=== PATIENT | female | born 1965 | race African-American/Black ===

== ENCOUNTER 2017-12-15 10:04 | Inpatient (IN) | payer MEDICARE, OTHER ==
[2017-12-15 10:41] LABS: #Lymphocytes 1.7 thou/uL (1.20-3.40); #Monocytes 0.4 thou/uL (0.11-0.59); #Neutrophils 4.3 thou/uL (1.40-6.50); %Basophils 0.1 % (0.0-1.0); %Eosinophils 0.2 % (0.0-10.0); %Lymphocytes 26.7 % (21.0-51.0); %Monocytes 6.2 % (0.0-10.0); %Neutrophils 66.8 % (42.0-75.0); Hemoglobin 12.1 g/dL (12.0-16.0); Mean Corpuscular HGB CONC 32.5 g/dL (32.0-36.0); Mean Corpuscular Hemoglobin 31.9 pg (27.0-31.0); Mean Platelet Volume 8.1 fL (7.4-10.4); Platelet Count 180 thou/uL (130-400); RBC Distribution Width 14.9 % (11.5-14.5); White Blood Cell (WBC) Count 6.4 thou/uL (4.8-10.8)
--- NOTE | 2017-12-15 10:52 | RAD ---
PORTABLE CHEST ONE VIEW: Date: 12-15-17 Time: 10:46 a.m. History: Shortness of breath. FINDINGS/IMPRESSION: Comparison with exam dated 06-18-16. The heart size is mildly prominent. There is pulmonary vascular congestion with patchy consolidation in the lung garcia bilaterally. No pneumothoraces or large effusions are seen. POS: [facility]
[2017-12-15] MEDS ORDERED: Furosemide 40 MG/4 ML VIAL ONE (11:04)
[2017-12-15] MEDS ORDERED: Nitroglycerin 2% Ointment 1 INCH/1 GM Packet ONE (11:04)
[2017-12-15] MEDS ORDERED: Albuterol Sulfate 2.5 mg/0.5 ml Neb ONE (11:08)
[2017-12-15] MEDS ORDERED: Albuterol Sulfate 2.5 mg/3 ml Neb ONE (11:08)
[2017-12-15 11:14] LABS: ALT (SGPT) 12 U/L (8-55); AST (SGOT) 11 U/L (5-34); Alkaline Phosphatase 92 U/L (40-150); Anion Gap 13 mmol/L (10-20); BUN (Urea Nitrogen) 8 mg/dL (9.8-20.1); Bilirubin, Total 1.5 mg/dL (0.2-1.2); Calc. Creatinine Clearance 0 mL/min (70-130); Calcium 8.6 mg/dL (7.8-10.44); Carbon Dioxide 22 mmol/L (22-29); Chloride 110 mmol/L (98-107); Estimated GFR-MDRD 89; Globulin 2.7 g/dL (2.4-3.5); Glucose 116 mg/dL (70-105); Protein, Total 6.7 g/dL (6.0-8.3); Sodium 142 mmol/L (136-145)
[2017-12-15 11:18] LABS: CKMB 2.4 ng/mL (0-6.6); Troponin I Less than 0.010 ng/mL (< 0.028)
[2017-12-15 11:23] LABS: Potassium 2.8 mmol/L (3.5-5.1)
[2017-12-15] MEDS ORDERED: Potassium Chloride 20 MEQ TAB ONE (11:58)
[2017-12-15] MEDS ORDERED: Mag-Al 1200 mg/1200 mg/30 ML UDCUP PO PRN (13:19)
[2017-12-15] MEDS ORDERED: Guaifenesin DM 100-10/5 ML UDCUP PO PRN (13:19)
[2017-12-15] MEDS ORDERED: Acetaminophen 325 MG TAB PO PRN (13:19)
[2017-12-15] MEDS ORDERED: Calcium Carbonate 500 MG ChewTAB PO PRN (13:19)
--- NOTE | 2017-12-15 14:29 | HP ---
REASON FOR ADMISSION: Acute chronic obstructive pulmonary disease and congestive heart failure exace rbation. HISTORY OF PRESENT ILLNESS: The patient gives history of having shortness of breath which started on Tuesday. This was gradually getting worse. On Tuesday, she went to see her primary care physician, Dr. Ac Hampton. She was given a prescription for steroids, prednisone 50 mg daily to take for 5 days. She was also told to take her inhaler on a regular basis. This morning the patient woke up a round 3 in the morning and could not breathe. She called EMS and was brought here. She has a dry co ugh, but no expectoration. No complaints of fever. The patient does not recall the exact date of he r stress test, but she thinks she might have had one 3 years back in [place], [place] and was negative as far she knows. She has taken a flu shot for this year. No prior history of heart failure as such . 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 Cardiac catheterization done in shows mild coronary artery disease, LV ejection fraction was 55-60% on the angiogram, hysterec ulisses, depression. CURRENT MEDICATIONS: Norvasc 5 mg daily, prednisone 50 mg daily which she started on 12/13/2017 for a total of 5 days, Lopressor 25 mg twice daily, sertraline 50 mg daily, omeprazole 20 mg daily, albut kae inhaler q.6 hourly p.r.n., Lipitor 40 mg p.o. daily, aspirin 81 mg p.o. daily, trazodone 50 mg p .o. at bedtime, Cozaar 100 mg p.o. daily, Lasix 20 mg p.o. daily. ALLERGIES: No known drug allergies. PERSONAL HISTORY: Smokes half pack a day. Does not abuse alcohol or drugs. She has been smoking fr om the last 20 years or so. FAMILY HISTORY: Mother has had history of [place]. She in her 70s. She does not know much about he r father. REVIEW OF SYSTEMS: The following complete review of systems was negative, unless otherwise mentioned in the HPI or below: Constitutional: Weight loss or gain, ability to conduct usual activities. Skin: Rash, itching. Eyes: Double vision, pain. ENT/Mouth: Nose bleeding, neck stiffness, pain, tenderness. Cardiovascular: Palpitations, dyspnea on exertion, orthopnea. Respiratory: Shortness of breath, wheezing, cough, hemoptysis, fever or night sweats. Gastrointestinal: Poor appetite, abdominal pain, heartburn, nausea, vomiting, constipation, or diarrhea. Genitourinary: Urgency, frequency, dysuria, nocturia. Musculoskeletal: Pain, swelling. Neurologic/Psychiatric: Anxiety, depression. Allergy/Immunologic: Skin rash, bleeding tendency. PHYSICAL EXAMINATION: GENERAL: The patient is a 52-year-old female who is currently not in any acute distress. VITAL SIGNS: Blood pressure 140/84, pulse 90 per minute, respiratory rate 28 on arrival, currently a round 20, temperature 98 degrees Fahrenheit, saturating 100% on 2 liters nasal cannula. The patient was initially brought on BiPAP and was saturating 96%. NECK: Supple, no elevated JVD. HEENT: Eyes; extraocular muscles intact. Pupils reacting to light. Oral cavity mucous membranes ar e moist. No exudates or congestion. CARDIOVASCULAR: S1, S2 heard. Regular rhythm. RESPIRATORY: Air entry 1+ bilateral. Scattered rales plus in the infrascapular area. ABDOMEN: Soft, bowel sounds heard. No tenderness, rigidity or guarding. EXTREMITIES: No peripheral edema or calf tenderness. VASCULAR SYSTEM: Peripheral pulses 1+ bilateral, no ischemic ulcerations or gangrene. CENTRAL NERVOUS SYSTEM: No gross focal deficits seen. Patient is lethargic, but oriented well. PSYCHIATRIC: The patient's mood is euthymic. No hallucinations or delusions. LABORATORY AND X-RAY FINDINGS: Chest x-ray done shows pulmonary vascular congestion. Potassium 2.8, serum bicarbonate 22, BUN 8, creatinine 0.8, glucose 116, total bilirubin 1.5. Liver enzymes within normal limits. BNP is 762. First set of cardiac enzymes are negative. White count of 6, H&H 12 an d 37, platelet count 180, MCV is 98 with 68% neutrophils. EKG done shows normal sinus rhythm at 90 b eats per minute. There are signs of LVH seen on the EKG. CLINICAL IMPRESSION AND PLAN: The patient will be admitted to telemetry for acute new onset congesti ve heart failure exacerbation, likely diastolic dysfunction, acute chronic obstructive pulmonary dise ase exacerbation. The patient will be placed on Lasix 40 mg IV q.6 hourly for a total of 4 doses. T he patient has severe pulmonary vascular congestion on the x-ray and clinically. We will continue he r aspirin, Lipitor, sertraline and trazodone as before. She will be on Solu-Medrol 40 mg IV q.6h, al todd with DuoNebs and empiric Levaquin for now. We will also place her on a small dose of Coreg and l isinopril to accommodate for diuresis. Her potassium will be aggressively replaced. We will obtain an echo with 2D Doppler for LV function and cardiology consultation with Dr. Hernández who is parts control clerk fo r Cardiology. We will continue to closely monitor her on telemetry.
[2017-12-15 14:53] VITALS: BMI 25.4
[2017-12-15] MEDS ORDERED: Sodium Chloride 0.9% 10 ML ONE ×2 (17:24→17:33)
[2017-12-15] MEDS: Furosemide 40 MG/4 ML VIAL SLOW IVP SCH ×2 (17:37→22:39)
[2017-12-15] MEDS: Nicotine 14 MG PATCH TD SCH (17:38)
[2017-12-15] MEDS: Potassium Chloride 20 MEQ TAB PO SCH ×2 (17:40→22:40)
--- NOTE | 2017-12-15 18:15 | CON ---
DATE OF CONSULTATION: 12/15/2017 PRIMARY NIGHT SUPERVISOR: Dr. Flakito Kerr. REASON FOR CONSULTATION: Shortness of breath. HISTORY OF PRESENT ILLNESS: Ms. Chapman is a very pleasant 52-year-old female who co mes to the hospital for increased shortness of breath and cough. She was at home having physical the rapy. In her therapy, it was noted that she was coughing a lot more and felt a little more short of breath than normal. Physical therapist called her primary care physician who recommended she go to [facility] for evaluation. She was seen in the ER and was diagnosed with a COPD exacerbation and admitted for further care. During her evaluation, she was found to have an elevated BNP, so Cardiology is be ing consulted for further evaluation of possible heart failure. She has had a cardiac evaluation in the past in 2014. She was admitted for COPD exacerbation. She had a stress that was abnormal and ev entually taken to the catheterization lab where she was found to have mild coronary artery disease. Her LV function at that time was 50%-55%. PAST MEDICAL HISTORY: 1. Hypertension. 2. Hyperlipidemia. 3. Bronchial asthma. 4. History of cerebrovascular accident with left-sided weakness. 5. Mild coronary artery disease. PAST SURGICAL HISTORY: 1. Heart catheterization in 07/2015. 2. Hysterectomy. OUTPATIENT MEDICATIONS: Include, 1. Norvasc 5 mg a day. 2. Prednisone 50 mg a day started 2 days ago. 3. Lopressor 25 mg twice a day. 4. Sertraline 50 mg a day. 5. Omeprazole 20 mg a day. 6. Albuterol inhaler p.r.n. 7. Lipitor 40 mg at bedtime. 8. Aspirin 81 a day. 9. Trazodone 50 mg a day. 10. Cozaar 100 mg a day. 11. Lasix 20 mg daily. ALLERGIES: No known drug allergies. SOCIAL HISTORY: Smokes half pack a day. No alcohol or drugs. FAMILY HISTORY: Mother with MS in her 70s. REVIEW OF SYSTEMS: A 12-point review of systems was done and is all negative unless stated in the h istory of present illness. PHYSICAL EXAMINATION: VITAL SIGNS: Temperature 97.9, pulse 90, respiration rate 34, saturating 93% on 3 liters, blood pres sure 140/84. GENERAL: Awake, alert, oriented x3, in no distress. HEENT: Normocephalic. LUNGS: Reduced breath sounds bilaterally. CARDIOVASCULAR: S1, S2, no S3 or S4, distant heart sounds. ABDOMEN: Prominent with some distention, but nontender. EXTREMITIES: Trace edema. SKIN: Warm and dry. LABORATORY WORK: Reviewed. Normal white count, hemoglobin 12, hematocrit 37, platelet count of 180. Chemistry remarkable only for potassium of 2.8, chloride of 110, BUN of 8, creatinine was normal 0. 81, glucose of 116, total bilirubin 1.5. Troponin is normal x1. BNP was 762. Chest x-ray showed mildly prominent heart size with pulmonary vascular congestion with patchy consoli dation in bilateral lung garcia. ASSESSMENT AND PLAN: 1. Acute chronic obstructive pulmonary disease exacerbation. 2. Acute decompensated heart failure: Unclear whether this is systolic or diastolic or just related to pulmonary hypertension from her chronic obstructive pulmonary disease. PLAN: 1. Continue IV diuresis. 2. We will get an echocardiogram to assess LV function and valvular structures. She states she had an evaluation in [place] last year. She had a stress that she was told that it was normal and there were plans of doing a JOANNE at one point, he is describing they want to do procedure really go into her mouth and look at the heart from the inside and this was unable to be done at that time, unclear of the circumstances of this. 3. Further recommendations per results of echocardiogram and Dr. Kerr will follow in the morning .
[2017-12-15] MEDS: Carvedilol 3.125 MG TAB PO SCH (20:27)
[2017-12-15] MEDS: Atorvastatin Calcium 40 MG TAB PO SCH (20:27)
[2017-12-15] MEDS: Famotidine 20 MG TAB PO SCH (20:27)
[2017-12-15] MEDS: Docusate 100 MG CAP PO SCH (20:27)
[2017-12-15] MEDS: traZODone HCl 50 MG TAB PO SCH (20:27)
[2017-12-16] MEDS: Potassium Chloride 20 MEQ TAB PO SCH ×4 (00:20→18:29)
[2017-12-16] MEDS: Furosemide 40 MG/4 ML VIAL SLOW IVP SCH ×3 (00:21→14:57)
[2017-12-16 06:01] LABS: #Lymphocytes 0.7 thou/uL (1.20-3.40); #Monocytes 0.3 thou/uL (0.11-0.59); #Neutrophils 6.3 thou/uL (1.40-6.50); %Basophils 0.1 % (0.0-1.0); %Eosinophils 0.1 % (0.0-10.0); %Lymphocytes 9.4 % (21.0-51.0); %Monocytes 4.5 % (0.0-10.0); %Neutrophils 85.8 % (42.0-75.0); Hemoglobin 12.2 g/dL (12.0-16.0); Mean Corpuscular HGB CONC 32.8 g/dL (32.0-36.0); Mean Corpuscular Hemoglobin 32.1 pg (27.0-31.0); Mean Corpuscular Volume 97.8 fl (81.0-99.0); Mean Platelet Volume 8.5 fL (7.4-10.4); Platelet Count 214 thou/uL (130-400); RBC Distribution Width 15.1 % (11.5-14.5); Red Blood Cell (RBC) Count 3.78 mill/uL (4.20-5.40); White Blood Cell (WBC) Count 7.4 thou/uL (4.8-10.8)
[2017-12-16 06:11] LABS: Anion Gap 13 mmol/L (10-20); BUN (Urea Nitrogen) 13 mg/dL (9.8-20.1); Calc. Creatinine Clearance 68 mL/min (70-130); Calcium 9.5 mg/dL (7.8-10.44); Carbon Dioxide 25 mmol/L (22-29); Chloride 108 mmol/L (98-107); Estimated GFR-MDRD 72; Glucose 138 mg/dL (70-105); Potassium 4.9 mmol/L (3.5-5.1); Sodium 141 mmol/L (136-145); Uric Acid 4.6 mg/dL (2.6-6.0)
[2017-12-16] MEDS: Carvedilol 3.125 MG TAB PO SCH (09:13)
[2017-12-16] MEDS: Lisinopril 2.5 MG TAB PO SCH (09:14)
[2017-12-16] MEDS: Famotidine 20 MG TAB PO SCH ×2 (09:15→21:01)
[2017-12-16] MEDS: Enoxaparin Sodium 40 MG/0.4 ML SYRINGE SC SCH (09:17)
[2017-12-16] MEDS: Docusate 100 MG CAP PO SCH ×2 (09:17→21:02)
--- NOTE | 2017-12-16 11:56 | PQF ---
NELSON PINEDA VINAYA KUMAR MD [id number] CLINICAL DOCUMENTATION IMPROVEMENT CLARIFICATION FORM: ICD-10 Updated PLEASE DO AN ADDENDUM TO THE PROGRESS NOTE WITH ANY DOCUMENTATION UPDATES OR ADDITIONS AND CARRY THROUGH TO DC SUMMARY. THANK YOU. DATE: 12-16-17 ATTN: DR. DURÁN Please exercise your independent, professional judgment in responding to the clarification form. Clinical indicators are provided on the bottom of this form for your review Please check appropriate box(s): [x ] Acute Respiratory Failure: [x ] with Hypoxia[ ] with Hypercapnia [ ] Acute Respiratory Failure due to: (etiology) [ ] Hypoxia [ ] Other diagnosis [ ] Unable to determine In addition, please specify: Present on Admission (POA): [ x] Yes [ ] No [ ] Unable to determine For continuity of documentation, please document condition throughout progress notes and discharge summary. Thank You. CLINICAL INDICATORS - SIGNS / SYMPTOMS / LABS ER: O2 SAT 96 - 100% ON BIPAP RESP 21 - 30 PULSE 85 - 96 * WHEEZING *RESP EFFORT LABORED * RAPID * CONVERSES IN SHORT PHRASES * SIGNS OF DISTRESS * GRUNTING * NASAL FLARING *TRIPOD POSITIONING RISK FACTORS ER DX: ACUTE CHF EXAC; COPD EXAC; FAILED OP TREATMENT ER: NEW ONSET CHF EXAC; ACUTE ON CHRONIC COPD EXACERBATION TREATMENTS: MAR: DUONEB 12-15 / 12-16 LEVAQUIN IV 3-8 LASIX IV 12-15 / 12-16 SOLU-MEDROL 12-15 / 12-16 BiPAP IN ER MONITORING O2 SAT PER RT THANK YOU, ESE (This form is maintained as a part of the permanent medical record) 2014 [employer]. All Rights Reserved Ese Sanchez RN, BS [email or web address] [employer] [facility]
--- NOTE | 2017-12-16 12:29 | PDOC.PN ---
- Subjective Encounter Start Date: 12/16/17 Encounter Start Time: 10:00 Subjective: breathing better, no chest pain -: is amb in room, eating better - Objective Resuscitation Status: Resuscitation Status FULL:Full Resuscitation MAR Reviewed: Yes Vital Signs & Weight: Vital Signs (12 hours) Temp Pulse Resp BP BP Pulse Ox 12/16/17 11:05 98.2 F 82 24 H 125/75 92 L 12/16/17 11:04 87 125/75 12/16/17 09:14 87 134/69 12/16/17 08:47 87 16 100 12/16/17 08:00 98.2 F 82 24 H 134/69 97 12/16/17 05:15 94 16 145/90 H 98 Weight Weight 159 lb 12.8 oz I&O: 12/15/17 12/16/17 12/17/17 06:59 06:59 06:59 Intake Total 1106 240 Output Total 300 Balance 806 240 Result Diagrams: 12/16/17 05:06 12/16/17 05:06 Phys Exam - Physical Examination HEENT: PERRLA, moist MMs Neck: no JVD, supple Respiratory: no wheezing rhonchi+ Cardiovascular: RRR, no significant murmur Gastrointestinal: soft, non-tender, positive bowel sounds Musculoskeletal: no edema, pulses present Neurological: non-focal, moves all 4 limbs Psychiatric: A&O x 3 Dx/Plan (1) Acute diastolic (congestive) heart failure Code(s): I50.31 - ACUTE DIASTOLIC (CONGESTIVE) HEART FAILURE Status: Acute (2) COPD exacerbation Code(s): J44.1 - CHRONIC OBSTRUCTIVE PULMONARY DISEASE W (ACUTE) EXACERBATION Status: Acute (3) Dyslipidemia Code(s): E78.5 - HYPERLIPIDEMIA, UNSPECIFIED Status: Chronic (4) H/O: CVA (cerebrovascular accident) Code(s): Z86.73 - PRSNL HX OF TIA (TIA), AND CEREB INFRC W/O RESID DEFICITS Status: Chronic (5) HTN (hypertension) Code(s): I10 - ESSENTIAL (PRIMARY) HYPERTENSION Status: Chronic Qualifiers: Hypertension type: essential hypertension Qualified Code(s): I10 - Essential (primary) hypertension (6) Tobacco abuse Code(s): Z72.0 - TOBACCO USE Status: Chronic - Plan change lasix to 40mg iv q12h -: hypokalemia has resolved -: has elevated PA pressures with likely pulm htn -: CTA chest to r/o PE -: taper steroids, nebs, will f/u * . Review of Systems - Medications/Allergies Allergies/Adverse Reactions: Allergies Allergy/AdvReac Type Severity Reaction Status Date / Time No Known Allergies Allergy Verified 12/15/17 14:55 Medications: Current Medications Acetaminophen (Tylenol) 650 mg PO Q4H PRN PRN Reason: Headache/Fever or Pain Al Hydroxide/Mg Hydroxide (Maalox) 30 ml PO Q6H PRN PRN Reason: Heartburn or Indigestion Albuterol/Ipratropium (Duoneb) 3 ml NEB [id number] [facility] Last Admin: 12/16/17 08:47 Dose: 3 ml Aspirin (Aspirin Chewable) 81 mg PO DAILY [facility] Last Admin: 12/16/17 09:15 Dose: 81 mg Atorvastatin Calcium (Lipitor) 40 mg PO HS [facility] Last Admin: 12/15/17 20:27 Dose: 40 mg Calcium Carbonate (Tums) 1,000 mg PO Q4H PRN PRN Reason: Heartburn or Indigestion Diltiazem HCl (Cardizem Cd) 120 mg PO DAILY [facility] Diltiazem HCl (Cardizem Cd) 120 mg PO NOW [facility] Stop: 12/16/17 13:00 Last Admin: 12/16/17 11:04 Dose: 120 mg Docusate Sodium (Colace) 100 mg PO BID [facility] Last Admin: 12/16/17 09:17 Dose: Not Given Enoxaparin Sodium (Lovenox) 40 mg SC 0900 [facility] Last Admin: 12/16/17 09:17 Dose: 40 mg Famotidine (Pepcid) 20 mg PO BID [facility] Last Admin: 12/16/17 09:15 Dose: 20 mg Furosemide (Lasix) 40 mg SLOW IVP 0600,1400 [facility] Guaifenesin/Dextromethorphan (Robitussin Dm) 15 ml PO Q4H PRN PRN Reason: Cough Levofloxacin 750 mg/ Device 150 mls @ 100 mls/hr IVPB Q24HR [facility] Last Admin: 12/15/17 17:36 Dose: 150 mls Lisinopril (Zestril) 2.5 mg PO DAILY [facility] Last Admin: 12/16/17 09:14 Dose: 2.5 mg Methylprednisolone Sodium Succinate (Solu-Medrol) 20 mg IVP Q8HR [facility] Nicotine (Nicoderm Patch) 14 mg TD Q24HR [facility] Last Admin: 12/15/17 17:38 Dose: Not Given Potassium Chloride (K-Dur) 40 meq PO Q6HR [facility] Stop: 12/16/17 18:01 Last Admin: 12/16/17 11:04 Dose: 40 meq Sertraline HCl (Zoloft) 50 mg PO DAILY [facility] Last Admin: 12/16/17 09:16 Dose: 50 mg Sodium Chloride (Flush - Normal Saline) 10 ml IVF Q12HR [facility] Last Admin: 12/16/17 09:22 Dose: 10 ml Sodium Chloride (Flush - Normal Saline) 10 ml IVF PRN PRN PRN Reason: Saline Flush Trazodone HCl (Desyrel) 50 mg PO HS [facility] Last Admin: 12/15/17 20:27 Dose: 50 mg
[2017-12-16] MEDS: Nicotine 14 MG PATCH TD SCH (13:33)
[2017-12-16] MEDS ORDERED: Iopamidol 370 76% 100 ML VIAL ONE (13:47)
--- NOTE | 2017-12-16 15:31 | CT ---
CT ANGIO CHEST PERFORMED WITH INTRAVENOUS CONTRAST ENHANCEMENT WITH 3D RECONSTRUCTION: HISTORY: Shortness of breath. FINDINGS: The lungs show a somewhat mosaic attenuation pattern. There is hypoattenuation and ground glass opac ity. Within the areas of hypoattenuation, vessels appear somewhat smaller and within the areas of gr ound glass opacity, there did not appear to be any other secondary features that would suggest that t he underlying abnormality is related to ground glass opacity and, rather, it is felt that the areas o f hypoattenuation in this patient are the abnormal areas. Therefore, the pattern is more suggestive of airway or vascular disease rather than the myriad causes for ground glass opacity within the lung. There are small effusions. The pulmonary arteries are not dilated but are prominent. There is no CT evidence for pulmonary embolus. The thoracic aorta is normal in caliber. The visualized liver parenchyma is normal. IMPRESSION: 1. Abnormal lung mosaic type pattern, which, in this case, the underlying abnormality is felt to be the areas of hypoattenuation, suggesting an underlying airway or vascular disease. In this patient, with borderline pulmonary arteries, the underlying etiology may be pulmonary artery hypertension. Th ere are small effusions present. 2. No CT evidence for pulmonary embolus. POS: [facility]
[2017-12-16] MEDS: traZODone HCl 50 MG TAB PO SCH (21:01)
[2017-12-16] MEDS: Atorvastatin Calcium 40 MG TAB PO SCH (21:01)
[2017-12-17] MEDS: Furosemide 40 MG/4 ML VIAL SLOW IVP SCH (05:46)
[2017-12-17] MEDS ORDERED: predniSONE 20 MG TAB PO SCH (08:00)
[2017-12-17 08:31] LABS: Anion Gap 15 mmol/L (10-20); BUN (Urea Nitrogen) 18 mg/dL (9.8-20.1); Calc. Creatinine Clearance 62 mL/min (70-130); Calcium 10.1 mg/dL (7.8-10.44); Carbon Dioxide 22 mmol/L (22-29); Chloride 103 mmol/L (98-107); Estimated GFR-MDRD 60; Glucose 166 mg/dL (70-105); Potassium 4.4 mmol/L (3.5-5.1); Sodium 136 mmol/L (136-145)
[2017-12-17 08:50] LABS: #Monocytes 0.4 thou/uL (0.11-0.59); #Neutrophils 8.2 thou/uL (1.40-6.50); %Basophils 0.2 % (0.0-1.0); %Eosinophils 0.1 % (0.0-10.0); %Lymphocytes 10.3 % (21.0-51.0); %Neutrophils 85.5 % (42.0-75.0); Hemoglobin 13.3 g/dL (12.0-16.0); MDiff Complete? YES; Mean Corpuscular HGB CONC 30.7 g/dL (32.0-36.0); Mean Corpuscular Hemoglobin 30.9 pg (27.0-31.0); Mean Platelet Volume 8.3 fL (7.4-10.4); PLT Morphology Comment Appears Adequate; Platelet Count 260 thou/uL (130-400); Polychromasia MODERATE = 3-4 cells (100X) (0-2/hpf); RBC Distribution Width 15.2 % (11.5-14.5); White Blood Cell (WBC) Count 9.6 thou/uL (4.8-10.8)
[2017-12-17] MEDS ORDERED: Furosemide 40 MG TAB PO SCH (09:00)
[2017-12-17] MEDS: Lisinopril 2.5 MG TAB PO SCH (09:09)
[2017-12-17] MEDS: Docusate 100 MG CAP PO SCH (09:10)
[2017-12-17] MEDS: Enoxaparin Sodium 40 MG/0.4 ML SYRINGE SC SCH (09:10)
[2017-12-17] MEDS: Famotidine 20 MG TAB PO SCH (09:10)
[2017-12-17 11:43] VITALS: BP 122/75; TEMP 98.1
--- NOTE | 2017-12-17 11:46 | PDOC.PN ---
- Subjective Encounter Start Date: 12/17/17 Encounter Start Time: 09:15 Subjective: feels better, wants to go home -: daughter at bedside is insisting her mom go home now - Objective Resuscitation Status: Resuscitation Status FULL:Full Resuscitation MAR Reviewed: Yes Vital Signs & Weight: Vital Signs (12 hours) Temp Pulse Resp BP BP Pulse Ox 12/17/17 11:42 98.1 F 98 16 122/75 98 12/17/17 09:11 82 12/17/17 09:09 82 119/70 12/17/17 07:30 98.2 F 82 16 119/70 97 12/17/17 07:01 100 12/17/17 07:00 71 16 100 12/17/17 05:40 100 12/17/17 04:00 97.4 F L 80 18 124/65 100 12/17/17 01:58 100 Weight Weight 154 lb 3.2 oz I&O: 12/16/17 12/17/17 12/18/17 06:59 06:59 07:59 Intake Total 1106 1470 Output Total 300 250 Balance 806 1220 Result Diagrams: 12/17/17 07:57 12/17/17 07:57 Additional Labs: Accuchecks 12/17/17 05:42 POC Glucose 142 H Phys Exam - Physical Examination HEENT: PERRLA, moist MMs Neck: no JVD, supple Respiratory: no wheezing, no rales Cardiovascular: RRR, no significant murmur Gastrointestinal: soft, non-tender, positive bowel sounds Musculoskeletal: no edema, pulses present Neurological: non-focal, moves all 4 limbs Psychiatric: A&O x 3 Dx/Plan (1) Acute diastolic (congestive) heart failure Code(s): I50.31 - ACUTE DIASTOLIC (CONGESTIVE) HEART FAILURE Status: Acute (2) COPD exacerbation Code(s): J44.1 - CHRONIC OBSTRUCTIVE PULMONARY DISEASE W (ACUTE) EXACERBATION Status: Acute (3) Dyslipidemia Code(s): E78.5 - HYPERLIPIDEMIA, UNSPECIFIED Status: Chronic (4) H/O: CVA (cerebrovascular accident) Code(s): Z86.73 - PRSNL HX OF TIA (TIA), AND CEREB INFRC W/O RESID DEFICITS Status: Chronic (5) HTN (hypertension) Code(s): I10 - ESSENTIAL (PRIMARY) HYPERTENSION Status: Chronic Qualifiers: Hypertension type: essential hypertension Qualified Code(s): I10 - Essential (primary) hypertension (6) Tobacco abuse Code(s): Z72.0 - TOBACCO USE Status: Chronic - Plan Pt and daughter insist they want to go home come what may now -: they will call and schedule f/u with her pulmologist in 2 weeks -: may dc home -: pt and daughter are aware of CT findings and echo results which I have expl -: -ained in detail and the need for pulm consult, family wants it outpt * .
--- NOTE | 2017-12-18 00:01 | DIS ---
DATE OF ADMISSION: 12/15/2017 DATE OF DISCHARGE: 12/17/2017 DISCHARGE DISPOSITION: To home. PRIMARY DISCHARGE DIAGNOSES: Congestive heart failure exacerbation with diastolic dysfunction, chronic obstructive pulmonary disease exacerbation, hypertension, tobacco abuse, dyslipidemia. PROCEDURES DONE DURING HOSPITALIZATION: The patient has had echo with 2D Doppler done, which showed ejection fraction of 55% to 60%. There is mild concentric LVH. There was diastolic dysfunction, severe mitral regurgitation, right ventricular systolic pressures of 71 mmHg consistent with pulmonary hypertension. CT angio chest done showed no evidence of PE, had abnormal lung mosaic type pattern suggesting possible underlying airway or vascular disease. Blood cultures x2 no growth. H&H 13 and 43, platelet count 260. Discharge BUN and creatinine are 18 and 1.1. BNP was 762 on the day of admission. One set of cardiac enzymes were negative. INPATIENT CONSULTS: Dr. Hernández for Cardiology. BRIEF COURSE DURING HOSPITALIZATION: The patient initially got admitted with complaints of shortness of breath. She had gone to see her primary care physician on the Tuesday prior to arrival here and was given a prescription for steroids and inhalers. The patient was not getting better and had come to the emergency room. She was essentially admitted for new onset congestive heart failure exacerbation with diastolic dysfunction and COPD exacerbation. She has ongoing smoking history as well. Her echo with 2D Doppler revealed diastolic dysfunction with severe mitral regurgitation and pulmonary hypertension. A CT angio chest was done, which showed no evidence of PE, but there was abnormal mosaic type pattern seen suggestive of pulmonary hypertension. The patient this morning did not want to have a pulmonary consultation here as she sees her director trial at [facility], and wanted to have a outpatient followup with him in the next 2 weeks. She and her daughter are adamant about getting discharged this morning. She was gently diuresed during her stay and has done well. She is ambulating and eating well prior to discharge. Please see a face- to-face documentation for the day of discharge on [facility]. [facility]
--- NOTE | 2017-12-24 14:23 | EKG ---
Test Reason : Blood Pressure : / mmHG Vent. Rate : 090 BPM Atrial Rate : 090 BPM P-R Int : 154 ms QRS Dur : 092 ms QT Int : 394 ms P-R-T Axes : 042 076 057 degrees QTc Int : 481 ms Normal sinus rhythm Biatrial enlargement Left ventricular hypertrophy ST abnormality, possible digitalis effect Prolonged QT Abnormal ECG Confirmed by AIDEE Leigh, SOFYA ([id number]), subeditor LORENA HANSON ([id number]) on 12/24/2017 2:21:48 PM Referred By: Confirmed By:SOFYA HOSKINS M.D.
== END 2017-12-17 11:47 | disposition home or self-care (01) | DRG 291 ==
LOC: ERS 10:04 → 2NO 12:44
PROVIDERS: ADMIT Internal Medicine; ATTEND Internal Medicine
PROC: 5A09357 Assistance with Respiratory Ventilation, Less than 24 Consecutive Hours, Continuous Positive Airway Pressure (ICD-10-PCS; principal; 2017-12-15)
DX: I11.0 Hypertensive heart disease with heart failure (principal); J96.01 Acute respiratory failure with hypoxia; J44.1 Chronic obstructive pulmonary disease with (acute) exacerbation; I69.354 Hemiplegia and hemiparesis following cerebral infarction affecting left non-dominant side; I50.33 Acute on chronic diastolic (congestive) heart failure; I27.20 Pulmonary hypertension, unspecified; E78.5 Hyperlipidemia, unspecified; F32.9 Major depressive disorder, single episode, unspecified; F17.210 Nicotine dependence, cigarettes, uncomplicated; I34.0 Nonrheumatic mitral (valve) insufficiency; I25.10 Atherosclerotic heart disease of native coronary artery without angina pectoris; E87.6 Hypokalemia
CPT/HCPCS: 36415; 36416; 71045; 71275; 80048; 80053; 82553; 83880; 84484; 84550; 85025; 87040; 93005; 93306; 93798; 94640; 94644; 94660; 94760; 96374; A4216; J1650; J1940; J1956; J2920; J7506; J7611; J7620

== ENCOUNTER 2022-09-16 13:16 | Inpatient (IN) | payer OTHER ==
[2022-09-16 14:04] LABS: #Monocytes 0.5 thou/uL (0.11-0.59); #Neutrophils 2.4 thou/uL (1.40-6.50); %Basophils 0.4 % (0.0-1.0); %Eosinophils 0.7 % (0.0-10.0); %Lymphocytes 41.3 % (21.0-51.0); %Monocytes 9.2 % (0.0-10.0); %Neutrophils 48.4 % (42.0-75.0); Mean Corpuscular HGB CONC 34.7 g/dL (32.0-36.0); Mean Corpuscular Hemoglobin 35.3 pg (27.0-31.0); Mean Platelet Volume 9.1 fL (7.4-10.4); Platelet Count 177 10x3/uL (130-400); RBC Distribution Width 11.9 % (11.5-14.5); Red Blood Cell (RBC) Count 4.27 mill/uL (4.20-5.40); White Blood Cell (WBC) Count 4.9 10x3/uL (4.8-10.8)
[2022-09-16 14:25] LABS: ALT (SGPT) 38 U/L (8-55); AST (SGOT) 23 U/L (5-34); Albumin 4.5 g/dL (3.5-5.0); Alkaline Phosphatase 87 U/L (40-110); Anion Gap 11 mmol/L (10-20); BUN (Urea Nitrogen) 12 mg/dL (9.8-20.1); Bilirubin, Total 0.6 mg/dL (0.2-1.2); Calc. Creatinine Clearance 0 mL/min (70-130); Calcium 9.4 mg/dL (7.8-10.44); Carbon Dioxide 26 mmol/L (22-29); Chloride 108 mmol/L (98-107); Estimated GFR 62; Globulin 2.9 g/dL (2.4-3.5); Glucose 112 mg/dL (70-105); Potassium 3.7 mmol/L (3.5-5.1); Protein, Total 7.4 g/dL (6.0-8.3); Sodium 141 mmol/L (136-145)
[2022-09-16] MEDS ORDERED: Aspirin 325 MG TAB ONE (15:02)
[2022-09-16] MEDS ORDERED: Iopamidol-370 76% 500 ML 1 ML ONE (15:57)
[2022-09-16] MEDS ORDERED: Ondansetron ODT 4 MG TAB PO PRN (18:02)
[2022-09-16] MEDS ORDERED: Acetaminophen 325 MG TAB PO PRN (18:02)
[2022-09-16] MEDS ORDERED: Senokot S 8.6-50 MG TAB PO PRN (18:02)
[2022-09-16 18:13] LABS: INR-International Normal Ratio 1.5; Prothrombin Time 18.8 sec (12.0-14.7)
[2022-09-16] MEDS: Atorvastatin Calcium 40 MG TAB PO SCH (19:39)
[2022-09-16] MEDS: Famotidine 20 MG TAB PO SCH (19:39)
[2022-09-16] MEDS: Amlodipine 10 MG TAB PO SCH (19:40)
[2022-09-16 20:00] VITALS: BMI 25.0
[2022-09-17 06:24] LABS: ALT (SGPT) 36 U/L (8-55); AST (SGOT) 24 U/L (5-34); Alkaline Phosphatase 82 U/L (40-110); Anion Gap 11 mmol/L (10-20); BUN (Urea Nitrogen) 12 mg/dL (9.8-20.1); Bilirubin, Total 0.4 mg/dL (0.2-1.2); Calc. Creatinine Clearance 61 mL/min (70-130); Calcium 9.3 mg/dL (7.8-10.44); Carbon Dioxide 23 mmol/L (22-29); Cardiac Risk 3.1 (Less than 4.5); Chloride 108 mmol/L (98-107); Cholesterol 116 mg/dl (< 200 Desired); Estimated GFR 62; Globulin 2.9 g/dL (2.4-3.5); Glucose 89 mg/dL (70-105); HDL Cholesterol 37 mg/dL (>60 Neg Risk); LDL Cholesterol, Calculated 67 mg/dL; Potassium 4.3 mmol/L (3.5-5.1); Protein, Total 6.9 g/dL (6.0-8.3); Sodium 138 mmol/L (136-145); Triglycerides 61 mg/dL (Less than 150)
[2022-09-17 06:34] LABS: Hemoglobin 14.4 g/dL (12.0-16.0); Mean Corpuscular Hemoglobin 32.7 pg (27.0-31.0); Mean Platelet Volume 9.3 fL (7.4-10.4); Platelet Count 167 10x3/uL (130-400); RBC Distribution Width 11.9 % (11.5-14.5); Red Blood Cell (RBC) Count 4.41 mill/uL (4.20-5.40); White Blood Cell (WBC) Count 4.9 10x3/uL (4.8-10.8)
[2022-09-17 06:55] LABS: Eosinophils 1 % (0-10); Lymphocytes 59 % (21-51); MDiff Complete? YES; Monocytes 12 % (0-10); Neutrophil 28 % (42-75); Platelet Morphology Comment Appears Adequate; RBC Morphology Normal
[2022-09-17] MEDS: Clopidogrel Bisulfate 75 MG TAB PO SCH (08:23)
[2022-09-17] MEDS: Aspirin 81 mg Enteric Coated Tablet PO SCH (08:23)
[2022-09-17] MEDS: Carvedilol 25 MG TAB PO SCH (08:23)
[2022-09-17] MEDS: Famotidine 20 MG TAB PO SCH ×2 (08:23→20:13)
[2022-09-17] MEDS: Losartan 25 MG TAB PO SCH (08:23)
[2022-09-17] MEDS ORDERED: Atorvastatin Calcium 40 MG TAB PO SCH (09:00)
[2022-09-17] MEDS ORDERED: Heparin 10,000 UNITS/ 10 ML VIAL SLOW IVP SCH ×2 (13:00→17:30)
[2022-09-17] MEDS ORDERED: Heparin 25,000 units/D5W 500 ML IVPB SCH ×2 (13:00→17:30)
[2022-09-17 13:40] LABS: Hemoglobin 14.9 g/dL (12.0-16.0); Platelet Count 166 10x3/uL (130-400)
[2022-09-17] MEDS ORDERED: Warfarin Sodium 7.5 MG TAB PO SCH (17:00)
[2022-09-17] MEDS ORDERED: hydrALAZINE 20 MG/ML VIAL SLOW IVP PRN (17:36)
[2022-09-17 18:45] LABS: PTT Greater than 250.0 sec (22.9-36.1)
[2022-09-17] MEDS: Atorvastatin Calcium 40 MG TAB PO SCH (20:13)
[2022-09-18 03:59] LABS: Hemoglobin A1c 6.1 % (4.0-6.0)
[2022-09-18 04:01] LABS: INR-International Normal Ratio 1.3; Prothrombin Time 16.4 sec (12.0-14.7)
[2022-09-18] MEDS: Famotidine 20 MG TAB PO SCH ×2 (07:52→19:17)
[2022-09-18] MEDS: Clopidogrel Bisulfate 75 MG TAB PO SCH (07:52)
[2022-09-18] MEDS: Aspirin 81 mg Enteric Coated Tablet PO SCH (07:52)
[2022-09-18] MEDS: Carvedilol 25 MG TAB PO SCH (18:37)
[2022-09-18] MEDS: Atorvastatin Calcium 40 MG TAB PO SCH (19:17)
[2022-09-19 04:19] LABS: INR-International Normal Ratio 1.1; Prothrombin Time 14.6 sec (12.0-14.7)
[2022-09-19 04:20] LABS: PTT 69.7 sec (22.9-36.1)
[2022-09-19] MEDS: Aspirin 81 mg Enteric Coated Tablet PO SCH (10:11)
[2022-09-19] MEDS: Losartan 25 MG TAB PO SCH (10:12)
[2022-09-19] MEDS: Carvedilol 25 MG TAB PO SCH ×2 (10:12→18:55)
[2022-09-19] MEDS: Clopidogrel Bisulfate 75 MG TAB PO SCH (10:12)
[2022-09-19] MEDS: Famotidine 20 MG TAB PO SCH ×2 (10:12→20:17)
[2022-09-19 14:06] LABS: Hemoglobin 14.5 g/dL (12.0-16.0); Platelet Count 159 10x3/uL (130-400)
[2022-09-19 17:47] LABS: Hemoglobin 14.7 g/dL (12.0-16.0); Platelet Count 168 10x3/uL (130-400)
[2022-09-19] MEDS: Amlodipine 10 MG TAB PO SCH (20:17)
[2022-09-19] MEDS: Atorvastatin Calcium 40 MG TAB PO SCH (20:17)
[2022-09-20 03:55] LABS: Prothrombin Time 13.5 sec (12.0-14.7)
[2022-09-20 03:56] LABS: PTT 69.3 sec (22.9-36.1)
[2022-09-20] MEDS: Aspirin 81 mg Enteric Coated Tablet PO SCH (07:40)
[2022-09-20] MEDS: Carvedilol 25 MG TAB PO SCH ×2 (07:40→17:59)
[2022-09-20] MEDS: Clopidogrel Bisulfate 75 MG TAB PO SCH (07:40)
[2022-09-20] MEDS: Famotidine 20 MG TAB PO SCH ×2 (07:40→20:36)
[2022-09-20] MEDS: Losartan 25 MG TAB PO SCH (07:40)
[2022-09-20 08:23] LABS: Hemoglobin 14.3 g/dL (12.0-16.0); Mean Corpuscular HGB CONC 33.2 g/dL (32.0-36.0); Mean Corpuscular Hemoglobin 34.3 pg (27.0-31.0); Mean Platelet Volume 9.2 fL (7.4-10.4); Platelet Count 169 10x3/uL (130-400); RBC Distribution Width 11.9 % (11.5-14.5); Red Blood Cell (RBC) Count 4.17 mill/uL (4.20-5.40); White Blood Cell (WBC) Count 4.9 10x3/uL (4.8-10.8)
[2022-09-20 08:41] LABS: Anion Gap 12 mmol/L (10-20); BUN (Urea Nitrogen) 9 mg/dL (9.8-20.1); Calc. Creatinine Clearance 74 mL/min (70-130); Calcium 9.4 mg/dL (7.8-10.44); Carbon Dioxide 23 mmol/L (22-29); Chloride 109 mmol/L (98-107); Estimated GFR 74; Glucose 94 mg/dL (70-105); Potassium 4.2 mmol/L (3.5-5.1); Sodium 140 mmol/L (136-145)
[2022-09-20 10:58] LABS: Band 1 % (5-11); Eosinophils 2 % (0-10); Lymphocytes 47 % (21-51); MDiff Complete? YES; Monocytes 10 % (0-10); Neutrophil 40 % (42-75); Platelet Morphology Comment Appears Adequate; RBC Morphology Normal
[2022-09-20] MEDS ORDERED: Lidocaine 1% MPF 2 ML VIAL ONE (11:57)
[2022-09-20] MEDS ORDERED: Heparin 5,000 UNITS/ML VIAL ONE (11:59)
[2022-09-20] MEDS ORDERED: Bupivacaine HCl 0.5%/Epinephrine 1:200,000/PF 30 ml Vial ONE (11:59)
[2022-09-20] MEDS ORDERED: Protamine Sulfate 50 MG/5 ML VIAL ONE (11:59)
[2022-09-20] MEDS ORDERED: Dexamethasone 4 mg/ml Vial ONE (12:08)
[2022-09-20] MEDS ORDERED: CEFAZOLIN 2 GM VIAL ONE (12:17)
[2022-09-20] MEDS ORDERED: Midazolam HCl 2 mg/2 ml Vial ONE (12:17)
[2022-09-20] MEDS ORDERED: Sodium Chloride 0.9% 100 ML ONE (12:17)
[2022-09-20] MEDS ORDERED: niCARdipine 25 MG/10 ML VIAL ONE (12:17)
[2022-09-20] MEDS ORDERED: fentaNYL PF 100 MCG/2 ML SYRINGE ONE (12:17)
[2022-09-20] MEDS ORDERED: Dexamethasone 20 MG/5 ML VIAL ONE (12:28)
[2022-09-20] MEDS ORDERED: Rocuronium Bromide 10 MG/ML (10ML VIAL) ONE (12:28)
[2022-09-20] MEDS ORDERED: PROPOFOL 200 MG/20 ML VIAL ONE (12:28)
[2022-09-20] MEDS ORDERED: Ondansetron PF 4 MG/2 ML Vial ONE (12:28)
[2022-09-20] MEDS ORDERED: SUGAMMADEX SODIUM 200 MG/2 ML VIAL ONE (13:55)
[2022-09-20] MEDS: Sodium Chloride 0.9% 1,000 ML IV SCH (17:45)
[2022-09-20] MEDS ORDERED: Nitroglycerin 50 MG/250 ML BOT 250 ML IVPB PRN (17:58)
[2022-09-20] MEDS ORDERED: traMADol HCl 50 MG TAB PO PRN (17:58)
[2022-09-20] MEDS ORDERED: Acetaminophen 325 MG TAB PO PRN (17:58)
[2022-09-20] MEDS ORDERED: Ondansetron PF 4 MG/2 ML Vial IVP PRN (17:58)
[2022-09-20] MEDS ORDERED: Phenylephrine 40 MG in Sodium Chloride 0.9% 250 ML 250 ML IVPB PRN (17:58)
[2022-09-20] MEDS ORDERED: FENTANYL 50 MCG/ML 1 ML VIAL SLOW IVP PRN (18:21)
[2022-09-20] MEDS: CEFAZOLIN 2 GM in Sodium Chloride 0.9% 100 ML IVPB SCH (20:34)
[2022-09-20] MEDS: Atorvastatin Calcium 40 MG TAB PO SCH (20:35)
[2022-09-20] MEDS: Amlodipine 10 MG TAB PO SCH (20:35)
[2022-09-20] MEDS ORDERED: Electrolyte Replacement Protocol 1 EACH FS SCH (21:30)
[2022-09-21] MEDS: Sodium Chloride 0.9% 1,000 ML IV SCH (03:41)
[2022-09-21] MEDS: CEFAZOLIN 2 GM in Sodium Chloride 0.9% 100 ML IVPB SCH ×2 (03:44→12:39)
[2022-09-21 07:48] LABS: #Basophils 0.1 thou/uL (0.0-0.2); #Monocytes 0.8 thou/uL (0.11-0.59); #Neutrophils 13.4 thou/uL (1.40-6.50); %Basophils 0.8 % (0.0-1.0); %Lymphocytes 6.5 % (21.0-51.0); %Monocytes 5.1 % (0.0-10.0); %Neutrophils 87.6 % (42.0-75.0); Hemoglobin 13.9 g/dL (12.0-16.0); Mean Corpuscular HGB CONC 32.6 g/dL (32.0-36.0); Mean Corpuscular Hemoglobin 33.4 pg (27.0-31.0); Mean Platelet Volume 9.2 fL (7.4-10.4); Platelet Count 180 10x3/uL (130-400); RBC Distribution Width 11.9 % (11.5-14.5); Red Blood Cell (RBC) Count 4.15 mill/uL (4.20-5.40); White Blood Cell (WBC) Count 15.3 10x3/uL (4.8-10.8)
[2022-09-21 08:02] LABS: Anion Gap 14 mmol/L (10-20); BUN (Urea Nitrogen) 14 mg/dL (9.8-20.1); Calc. Creatinine Clearance 70 mL/min (70-130); Calcium 9.4 mg/dL (7.8-10.44); Carbon Dioxide 21 mmol/L (22-29); Chloride 108 mmol/L (98-107); Estimated GFR 69; Glucose 117 mg/dL (70-105); Magnesium 1.9 mg/dL (1.6-2.6); Potassium 4.6 mmol/L (3.5-5.1); Sodium 138 mmol/L (136-145)
[2022-09-21] MEDS: Famotidine 20 MG TAB PO SCH ×2 (08:59→20:05)
[2022-09-21] MEDS: Carvedilol 25 MG TAB PO SCH ×2 (08:59→16:52)
[2022-09-21] MEDS: Aspirin 81 mg Enteric Coated Tablet PO SCH (08:59)
[2022-09-21] MEDS: Losartan 25 MG TAB PO SCH (08:59)
[2022-09-21] MEDS: Clopidogrel Bisulfate 75 MG TAB PO SCH (09:00)
[2022-09-21] MEDS: Enoxaparin Sodium 40 MG/0.4 ML SYRINGE SC SCH (09:00)
[2022-09-21] MEDS ORDERED: Magnesium 2 GM/50 ML(in water) 2 GM in Premix Bag 1 BAG IVPB SCH (13:45)
[2022-09-21] MEDS: Warfarin Sodium 5 MG TAB PO SCH (16:53)
[2022-09-21] MEDS: Atorvastatin Calcium 40 MG TAB PO SCH (20:05)
[2022-09-21] MEDS: Amlodipine 10 MG TAB PO SCH (20:06)
[2022-09-22] MEDS ORDERED: hydrOXYzine 10 MG TAB PO SCH (02:30)
[2022-09-22 03:49] LABS: #Lymphocytes 1.8 thou/uL (1.20-3.40); #Monocytes 1.2 thou/uL (0.11-0.59); #Neutrophils 8.8 thou/uL (1.40-6.50); %Basophils 0.2 % (0.0-1.0); %Eosinophils 0.2 % (0.0-10.0); %Neutrophils 74.7 % (42.0-75.0); Hemoglobin 12.1 g/dL (12.0-16.0); Mean Corpuscular HGB CONC 35.5 g/dL (32.0-36.0); Mean Corpuscular Hemoglobin 36.3 pg (27.0-31.0); Mean Platelet Volume 9.1 fL (7.4-10.4); Platelet Count 143 10x3/uL (130-400); RBC Distribution Width 11.9 % (11.5-14.5); Red Blood Cell (RBC) Count 3.34 mill/uL (4.20-5.40); White Blood Cell (WBC) Count 11.8 10x3/uL (4.8-10.8)
[2022-09-22 03:58] LABS: INR-International Normal Ratio 0.9
[2022-09-22 04:09] LABS: Anion Gap 9 mmol/L (10-20); BUN (Urea Nitrogen) 13 mg/dL (9.8-20.1); Calc. Creatinine Clearance 69 mL/min (70-130); Calcium 8.9 mg/dL (7.8-10.44); Carbon Dioxide 25 mmol/L (22-29); Chloride 111 mmol/L (98-107); Estimated GFR 68; Glucose 110 mg/dL (70-105); Magnesium 2.2 mg/dL (1.6-2.6); Phosphorus 2.7 mg/dL (2.3-4.7); Potassium 4.3 mmol/L (3.5-5.1); Sodium 141 mmol/L (136-145)
[2022-09-22] MEDS: Carvedilol 25 MG TAB PO SCH ×2 (08:04→18:41)
[2022-09-22] MEDS: Aspirin 81 mg Enteric Coated Tablet PO SCH (08:04)
[2022-09-22] MEDS: Clopidogrel Bisulfate 75 MG TAB PO SCH (08:04)
[2022-09-22] MEDS: Losartan 25 MG TAB PO SCH (08:04)
[2022-09-22] MEDS: Famotidine 20 MG TAB PO SCH ×2 (08:05→20:15)
[2022-09-22] MEDS: Enoxaparin Sodium 40 MG/0.4 ML SYRINGE SC SCH (08:08)
[2022-09-22] MEDS: Warfarin Sodium 5 MG TAB PO SCH (18:43)
[2022-09-22] MEDS: Amlodipine 10 MG TAB PO SCH (20:15)
[2022-09-22] MEDS: Atorvastatin Calcium 40 MG TAB PO SCH (20:15)
[2022-09-23 04:01] LABS: Anion Gap 12 mmol/L (10-20); BUN (Urea Nitrogen) 15 mg/dL (9.8-20.1); Calc. Creatinine Clearance 73 mL/min (70-130); Calcium 8.9 mg/dL (7.8-10.44); Carbon Dioxide 18 mmol/L (22-29); Chloride 112 mmol/L (98-107); Estimated GFR 71; Glucose 130 mg/dL (70-105); Prothrombin Time 13.5 sec (12.0-14.7); Sodium 138 mmol/L (136-145)
[2022-09-23 04:30] LABS: Hemoglobin 12.2 g/dL (12.0-16.0); Lymphocytes 44 % (21-51); MDiff Complete? YES; Macrocytosis MODERATE=16-30 cells (100X) (0-5/hpf); Mean Corpuscular HGB CONC 35.3 g/dL (32.0-36.0); Mean Corpuscular Hemoglobin 36.2 pg (27.0-31.0); Mean Platelet Volume 9.4 fL (7.4-10.4); Monocytes 6 % (0-10); Neutrophil 49 % (42-75); Ovalocytes SLIGHT = 2-5 cells (100X) (0-1/hpf); Platelet Count 155 10x3/uL (130-400); Platelet Morphology Comment Appears Adequate; Reactive Lymphocytes 1 % (0-10); Red Blood Cell (RBC) Count 3.38 mill/uL (4.20-5.40); White Blood Cell (WBC) Count 9.3 10x3/uL (4.8-10.8)
[2022-09-23] MEDS: Clopidogrel Bisulfate 75 MG TAB PO SCH (08:59)
[2022-09-23] MEDS: Carvedilol 25 MG TAB PO SCH ×2 (08:59→16:14)
[2022-09-23] MEDS: Enoxaparin Sodium 40 MG/0.4 ML SYRINGE SC SCH (08:59)
[2022-09-23] MEDS: Famotidine 20 MG TAB PO SCH (08:59)
[2022-09-23] MEDS: Losartan 25 MG TAB PO SCH (08:59)
[2022-09-23] MEDS: Aspirin 81 mg Enteric Coated Tablet PO SCH (08:59)
[2022-09-23 14:33] VITALS: BP 118/69
[2022-09-23 15:46] VITALS: TEMP 98.4
[2022-09-23] MEDS ORDERED: Warfarin Sodium 7.5 MG TAB PO SCH ×2 (16:15→17:00)
[2022-09-24] MEDS ORDERED: Warfarin Sodium 7.5 MG TAB PO SCH (17:00)
== END 2022-09-23 17:00 | disposition left against medical advice (07) | DRG 34 ==
LOC: ERS 13:16 → NEURO 17:37 → IMCU/EMU 09-17 21:28 → CCU 09-20 14:14
PROVIDERS: ADMIT Student in an Organized Health Care Education/Training Program; ATTEND Hospitalist
PROC: 037H3DZ Dilation of Right Common Carotid Artery with Intraluminal Device, Percutaneous Approach (ICD-10-PCS; principal; 2022-09-20)
DX: I65.23 Occlusion and stenosis of bilateral carotid arteries (principal); I63.511 Cerebral infarction due to unspecified occlusion or stenosis of right middle cerebral artery; I50.32 Chronic diastolic (congestive) heart failure; Z20.822 Contact with and (suspected) exposure to COVID-19; I11.0 Hypertensive heart disease with heart failure; E78.5 Hyperlipidemia, unspecified; I25.10 Atherosclerotic heart disease of native coronary artery without angina pectoris; F17.210 Nicotine dependence, cigarettes, uncomplicated; R29.701 NIHSS score 1; G93.89 Other specified disorders of brain; E66.9 Obesity, unspecified; J45.909 Unspecified asthma, uncomplicated; E83.42 Hypomagnesemia; Z53.29 Procedure and treatment not carried out because of patient's decision for other reasons; Z68.23 Body mass index [BMI] 23.0-23.9, adult; Z79.52 Long term (current) use of systemic steroids; Z79.899 Other long term (current) drug therapy; Z79.82 Long term (current) use of aspirin; Z95.2 Presence of prosthetic heart valve; Z90.710 Acquired absence of both cervix and uterus; Z79.51 Long term (current) use of inhaled steroids
CPT/HCPCS: 36415; 70450; 70496; 70498; 70551; 80048; 80053; 80061; 83036; 83735; 84100; 84443; 85014; 85018; 85025; 85049; 85610; 85730; 93005; 93306; 94640; 94760; 95712; 95819; 95957; C1725; C1769; C1876; C1884; J1100; J1642; J1644; J1650; J2250; J2405; J2704; J2720; J3475; J3490; J7050; J7620; Q9967; U0003; U0005

== ENCOUNTER 2022-12-09 13:08 | Emergency (ER) | payer OTHER ==
[~2022-12-09 13:08] MED LIST: Iopamidol-370 76% 500 ML 1 ML ONE
[2022-12-09 14:02] LABS: #Lymphocytes 1.9 thou/uL (1.20-3.40); #Monocytes 0.8 thou/uL (0.11-0.59); #Neutrophils 5.6 thou/uL (1.40-6.50); %Basophils 0.6 % (0.0-1.0); %Eosinophils 0.2 % (0.0-10.0); %Lymphocytes 22.6 % (21.0-51.0); %Monocytes 9.7 % (0.0-10.0); Hemoglobin 14.9 g/dL (12.0-16.0); Mean Corpuscular HGB CONC 34.4 g/dL (32.0-36.0); Mean Platelet Volume 9.1 fL (7.4-10.4); Platelet Count 188 10x3/uL (130-400); RBC Distribution Width 11.7 % (11.5-14.5); Red Blood Cell (RBC) Count 4.26 mill/uL (4.20-5.40); White Blood Cell (WBC) Count 8.4 10x3/uL (4.8-10.8)
[2022-12-09 14:21] LABS: ALT (SGPT) 46 U/L (8-55); AST (SGOT) 18 U/L (5-34); Albumin 4.6 g/dL (3.5-5.0); Alkaline Phosphatase 103 U/L (40-110); Anion Gap 15 mmol/L (10-20); BUN (Urea Nitrogen) 9 mg/dL (9.8-20.1); Calc. Creatinine Clearance 0 mL/min (70-130); Carbon Dioxide 24 mmol/L (22-29); Chloride 105 mmol/L (98-107); Estimated GFR 56; Globulin 3.5 g/dL (2.4-3.5); Glucose 114 mg/dL (70-105); Lipase 6 U/L (8-78); Potassium 3.7 mmol/L (3.5-5.1); Protein, Total 8.1 g/dL (6.0-8.3); Sodium 140 mmol/L (136-145)
[2022-12-09 14:24] LABS: Bacteria/HPF None Seen HPF (None Seen); Bilirubin Negative (Negative); Blood, Urine 3+ (Negative); Clarity Clear (Clear); Glucose, Urine (Dipstick) Normal (Negative); Ketone, Urine Negative (Negative); Leukocyte Negative Leu/uL (Negative); Nitrite Negative (Negative); Protein, Urine (Dipstick) Negative (Neg-Trace); RBC/HPF 21-50 HPF (0-3); Specific Gravity, Urine 1.012 (1.002-1.036); Squamous Epithelial 0-3 HPF (0-3); Urobilinogen Normal mg/dL (Less than 2); WBC/HPF 0-3 HPF (0-3)
[2022-12-09] MEDS ORDERED: HYDROcodone/Acetaminophen 5/325 mg Tablet ONE (14:31)
[2022-12-09] MEDS ORDERED: Morphine 2 MG/ML VIAL ONE (15:33)
[2022-12-09] MEDS ORDERED: cefTRIAXone\\ROCEPHIN 1 GM VIAL ONE (15:33)
[2022-12-09] MEDS ORDERED: Ondansetron ODT 4 MG TAB ONE (16:38)
== END 2022-12-09 16:44 | disposition home or self-care (01) ==
LOC: ERS 13:08
DX: N12 Tubulo-interstitial nephritis, not specified as acute or chronic (principal); I10 Essential (primary) hypertension; F17.210 Nicotine dependence, cigarettes, uncomplicated; Z79.82 Long term (current) use of aspirin
CPT/HCPCS: 36415; 74177; 80053; 81003; 81015; 83605; 83690; 83880; 84484; 85025; 87086; 96365; 96375; J0696; J2272; Q0162; Q9967

== ENCOUNTER 2023-04-14 05:36 | Inpatient (IN) | payer OTHER, MEDICAID ==
[2023-04-14] MEDS ORDERED: NEOSTIGMINE 3 MG/3 ML SYR 3 MG/3 ML SYRINGE ONE (06:37)
[2023-04-14] MEDS ORDERED: Rocuronium Bromide 10 MG/ML (10ML VIAL) ONE (06:37)
[2023-04-14] MEDS ORDERED: PROPOFOL 200 MG/20 ML VIAL ONE (06:37)
[2023-04-14] MEDS ORDERED: Glycopyrrolate 0.2 MG/ML 5 ML SYRINGE ONE (06:37)
[2023-04-14] MEDS ORDERED: Lidocaine 1% PF 5 ML VIAL ONE (06:37)
[2023-04-14] MEDS ORDERED: Protamine Sulfate 50 MG/5 ML VIAL ONE (06:41)
[2023-04-14] MEDS ORDERED: Heparin 5,000 UNITS/ML VIAL ONE (06:41)
[2023-04-14] MEDS ORDERED: Bupivacaine HCl 0.5%/Epinephrine 1:200,000/PF 30 ml Vial ONE (06:42)
[2023-04-14 06:58] LABS: #Eosinphils 0.1 thou/uL (0.0-0.7); #Monocytes 0.6 thou/uL (0.11-0.59); #Neutrophils 2.1 thou/uL (1.40-6.50); %Basophils 0.5 % (0.0-1.0); %Eosinophils 1.1 % (0.0-10.0); %Lymphocytes 51.1 % (21.0-51.0); %Neutrophils 37.1 % (42.0-75.0); Mean Corpuscular HGB CONC 33.9 g/dL (32.0-36.0); Mean Corpuscular Volume 97.4 fl (78.0-98.0); Platelet Count 210 10x3/uL (130-400); Red Blood Cell (RBC) Count 4.24 mill/uL (4.20-5.40); White Blood Cell (WBC) Count 5.7 10x3/uL (4.8-10.8)
[2023-04-14] MEDS ORDERED: Midazolam HCl 2 mg/2 ml Vial ONE (07:07)
[2023-04-14] MEDS ORDERED: Lidocaine 1% MPF 2 ML VIAL ONE (07:08)
[2023-04-14 07:12] LABS: INR-International Normal Ratio 5.8; PTT 81.1 sec (22.9-36.1); Prothrombin Time 55.2 sec (12.0-14.7)
[2023-04-14] MEDS ORDERED: Clopidogrel Bisulfate 75 MG TAB ONE (07:12)
[2023-04-14] MEDS ORDERED: Sodium Chloride 0.9% 100 ML ONE (07:17)
[2023-04-14] MEDS ORDERED: CEFAZOLIN 2 GM VIAL ONE (07:17)
[2023-04-14 07:20] LABS: Anion Gap 12 mmol/L (10-20); BUN (Urea Nitrogen) 14 mg/dL (9.8-20.1); Calc. Creatinine Clearance 68 mL/min (70-130); Calcium 9.6 mg/dL (7.8-10.44); Carbon Dioxide 22 mmol/L (22-29); Chloride 109 mmol/L (98-107); Estimated GFR 74; Glucose 102 mg/dL (70-105); Potassium 3.8 mmol/L (3.5-5.1); Sodium 139 mmol/L (136-145)
[2023-04-14] MEDS ORDERED: Phenylephrine 10 MG/ML VIAL ONE (07:43)
[2023-04-14] MEDS ORDERED: fentaNYL PF 100 MCG/2 ML SYRINGE ONE (07:43)
[2023-04-14] MEDS ORDERED: Promethazine HCl 25 MG/ML VIAL IM PRN (09:40)
[2023-04-14] MEDS ORDERED: Ondansetron HCl/PF 4 MG/2 ML Vial IVP PRN (09:40)
[2023-04-14] MEDS ORDERED: PACU-Morphine 4MG/ML VIAL SLOW IVP PRN (09:40)
[2023-04-14 10:29] VITALS: BMI 26.9
[2023-04-14] MEDS ORDERED: Ipratropium/Albuterol 3 ML NEB NEB PRN (10:44)
[2023-04-14] MEDS ORDERED: fentaNYL 50 mcg/mL 1 mL Vial SLOW IVP PRN (10:44)
[2023-04-14] MEDS ORDERED: Acetaminophen 325 MG TAB PO PRN (10:44)
[2023-04-14] MEDS ORDERED: Nitroglycerin 50 MG/250 ML BOT 250 ML IVPB PRN (10:44)
[2023-04-14] MEDS ORDERED: Phenylephrine 40 MG in Sodium Chloride 0.9% 250 ML 250 ML IVPB PRN (10:44)
[2023-04-14] MEDS ORDERED: hydrALAZINE 20 MG/ML VIAL SLOW IVP PRN (10:44)
[2023-04-14] MEDS ORDERED: Ondansetron PF 4 MG/2 ML Vial IVP PRN (10:44)
[2023-04-14] MEDS ORDERED: traMADol HCl 50 MG TAB PO PRN (10:44)
[2023-04-14] MEDS: Sodium Chloride 0.9% 1,000 ML IV SCH ×2 (11:45→20:14)
[2023-04-14] MEDS: Ipratropium/Albuterol 3 ML NEB NEB SCH ×3 (14:03→22:24)
[2023-04-14] MEDS: CEFAZOLIN 2 GM in Sodium Chloride 0.9% 100 ML IVPB SCH ×2 (14:40→20:13)
[2023-04-14] MEDS: Carvedilol 25 MG TAB PO SCH (20:14)
[2023-04-14] MEDS: Metoprolol Tartrate 100 MG TAB PO SCH (20:14)
[2023-04-15 04:21] LABS: Prothrombin Time 58.1 sec (12.0-14.7)
[2023-04-15 04:24] LABS: INR-International Normal Ratio 6.2
[2023-04-15] MEDS: CEFAZOLIN 2 GM in Sodium Chloride 0.9% 100 ML IVPB SCH (06:07)
[2023-04-15] MEDS: Sodium Chloride 0.9% 1,000 ML IV SCH (06:07)
[2023-04-15] MEDS: Ipratropium/Albuterol 3 ML NEB NEB SCH ×2 (07:04→13:12)
[2023-04-15] MEDS ORDERED: Warfarin Sodium 7.5 MG TAB PO SCH (09:00)
[2023-04-15] MEDS ORDERED: Potassium Chloride 10 MEQ TAB PO SCH (09:00)
[2023-04-15] MEDS ORDERED: Aspirin 81 mg Enteric Coated Tablet PO SCH (09:00)
[2023-04-15] MEDS ORDERED: Clopidogrel Bisulfate 75 MG TAB PO SCH (09:00)
[2023-04-15] MEDS ORDERED: Amlodipine 10 MG TAB PO SCH (09:00)
[2023-04-15] MEDS ORDERED: Losartan 25 MG TAB PO SCH (09:00)
[2023-04-15] MEDS ORDERED: Furosemide 20 MG TAB PO SCH (09:00)
[2023-04-15] MEDS: Metoprolol Tartrate 100 MG TAB PO SCH (09:10)
[2023-04-15] MEDS: Carvedilol 25 MG TAB PO SCH (09:10)
[2023-04-15 14:04] VITALS: TEMP 98.5
== END 2023-04-15 15:15 | disposition home or self-care (01) | DRG 36 ==
LOC: SURG A 05:36 → CCU 10:20
PROVIDERS: ADMIT Thoracic Surgery (Cardiothoracic Vascular Surgery); ATTEND Thoracic Surgery (Cardiothoracic Vascular Surgery)
PROC: 037L3DZ Dilation of Left Internal Carotid Artery with Intraluminal Device, Percutaneous Approach (ICD-10-PCS; principal; 2023-04-14)
PROC: B54CZZ3 Ultrasonography of Left Lower Extremity Veins, Intravascular (ICD-10-PCS; 2023-04-14)
PROC: B44LZZ3 Ultrasonography of Femoral Artery, Intravascular (ICD-10-PCS; 2023-04-14)
DX: I65.22 Occlusion and stenosis of left carotid artery (principal); I10 Essential (primary) hypertension; E78.5 Hyperlipidemia, unspecified; Z82.49 Family history of ischemic heart disease and other diseases of the circulatory system; Z79.01 Long term (current) use of anticoagulants
CPT/HCPCS: 36415; 80048; 85025; 85610; 85730; 93005; 93010; 94640; C1725; C1769; C1876; C1884; J1642; J1644; J2250; J2370; J2405; J2704; J2720; J3490; J7050; J7620

== ENCOUNTER 2023-04-15 22:13 | Observation (INO) | payer OTHER, MEDICAID ==
[~2023-04-15 22:13] MED LIST changes: -Iopamidol-370 76% 500 ML 1 ML ONE; +Iopamidol-370 76% 500 ML MDV (1 ML CHARGE) ONE
[2023-04-15 22:54] LABS: #Monocytes 0.8 thou/uL (0.11-0.59); #Neutrophils 5.5 thou/uL (1.40-6.50); %Basophils 0.2 % (0.0-1.0); %Eosinophils 0.4 % (0.0-10.0); %Lymphocytes 21.3 % (21.0-51.0); %Monocytes 10.1 % (0.0-10.0); %Neutrophils 67.8 % (42.0-75.0); Hemoglobin 9.6 g/dL (12.0-16.0); Mean Corpuscular Hemoglobin 33.4 pg (27.0-31.0); Mean Corpuscular Volume 98.3 fl (78.0-98.0); Platelet Count 151 10x3/uL (130-400); RBC Distribution Width 14.1 % (11.5-14.5); Red Blood Cell (RBC) Count 2.87 mill/uL (4.20-5.40); White Blood Cell (WBC) Count 8.1 10x3/uL (4.8-10.8)
[2023-04-15 23:09] LABS: INR-International Normal Ratio 2.8; PTT 43.8 sec (22.9-36.1)
[2023-04-15 23:14] LABS: BHCG - Serum Negative (NEGATIVE); Pregs Control Background? CLEAR/WHITE (CLR/WHITE); Pregs Control Bar Appear? YES (CONTROL BAR)
[2023-04-15 23:16] LABS: ALT (SGPT) 13 U/L (8-55); AST (SGOT) 15 U/L (5-34); Albumin 3.5 g/dL (3.5-5.0); Alkaline Phosphatase 61 U/L (40-110); Anion Gap 10 mmol/L (10-20); BUN (Urea Nitrogen) 9 mg/dL (9.8-20.1); Bilirubin, Total 0.4 mg/dL (0.2-1.2); Calc. Creatinine Clearance 0 mL/min (70-130); Calcium 8.8 mg/dL (7.8-10.44); Carbon Dioxide 24 mmol/L (22-29); Chloride 110 mmol/L (98-107); Estimated GFR 77; Globulin 2.6 g/dL (2.4-3.5); Glucose 108 mg/dL (70-105); Magnesium 1.8 mg/dL (1.6-2.6); Potassium 3.8 mmol/L (3.5-5.1); Protein, Total 6.1 g/dL (6.0-8.3); Sodium 140 mmol/L (136-145)
[2023-04-16 02:16] VITALS: BMI 28.0
[2023-04-16] MEDS ORDERED: Ondansetron PF 4 MG/2 ML Vial IVP PRN (02:30)
[2023-04-16] MEDS ORDERED: Ondansetron ODT 4 MG TAB SL PRN (02:30)
[2023-04-16] MEDS ORDERED: Acetaminophen 325 MG TAB PO PRN (02:30)
[2023-04-16] MEDS ORDERED: Losartan 25 MG TAB PO SCH (09:00)
[2023-04-16] MEDS: Amlodipine 10 MG TAB PO SCH (09:00)
[2023-04-16] MEDS ORDERED: Metoprolol Tartrate 100 MG TAB PO SCH (09:00)
[2023-04-16] MEDS: Carvedilol 25 MG TAB PO SCH ×2 (09:01→20:57)
[2023-04-16] MEDS: Furosemide 40 MG TAB PO SCH (09:01)
[2023-04-16] MEDS: Aspirin 81 mg Enteric Coated Tablet PO SCH (09:01)
[2023-04-16] MEDS: Potassium Chloride 10 MEQ TAB PO SCH (09:01)
[2023-04-17 05:32] LABS: #Monocytes 0.6 thou/uL (0.11-0.59); %Basophils 0.3 % (0.0-1.0); %Eosinophils 0.5 % (0.0-10.0); %Lymphocytes 36.3 % (21.0-51.0); %Monocytes 10.5 % (0.0-10.0); %Neutrophils 52.1 % (42.0-75.0); Hemoglobin 9.6 g/dL (12.0-16.0); Mean Corpuscular HGB CONC 33.8 g/dL (32.0-36.0); Mean Corpuscular Volume 100.7 fl (78.0-98.0); Mean Platelet Volume 10.7 fL (7.4-10.4); Platelet Count 148 10x3/uL (130-400); RBC Distribution Width 14.2 % (11.5-14.5); Red Blood Cell (RBC) Count 2.82 mill/uL (4.20-5.40); White Blood Cell (WBC) Count 5.8 10x3/uL (4.8-10.8)
[2023-04-17 05:48] LABS: INR-International Normal Ratio 1.3; PTT 35.8 sec (22.9-36.1)
[2023-04-17] MEDS: Potassium Chloride 10 MEQ TAB PO SCH (09:46)
[2023-04-17] MEDS: Amlodipine 10 MG TAB PO SCH (09:47)
[2023-04-17] MEDS: Furosemide 40 MG TAB PO SCH (09:47)
[2023-04-17] MEDS: Carvedilol 25 MG TAB PO SCH ×2 (09:47→20:23)
[2023-04-17] MEDS: Aspirin 81 mg Enteric Coated Tablet PO SCH (09:47)
[2023-04-18 08:10] VITALS: BP 118/57; TEMP 98.5
== END 2023-04-18 09:45 | disposition home or self-care (01) ==
LOC: ERS 22:13 → 2SW 04-16 00:24
PROVIDERS: ADMIT Thoracic Surgery (Cardiothoracic Vascular Surgery); ATTEND Thoracic Surgery (Cardiothoracic Vascular Surgery)
DX: R79.1 Abnormal coagulation profile (principal); I65.23 Occlusion and stenosis of bilateral carotid arteries; I10 Essential (primary) hypertension; E78.2 Mixed hyperlipidemia
CPT/HCPCS: 75635; 80053; 83605; 83735; 84484; 84703; 85025 ×2; 85610 ×2; 85730 ×2; 86850; 86900; 86901; 93005; 99284; G0378 ×4; 36415; Q9967

== ENCOUNTER 2023-09-05 11:55 | Emergency (ER) | payer OTHER ==
[2023-09-05] MEDS ORDERED: Doxycycline 100 MG CAP ONE (13:38)
[2023-09-05 13:47] LABS: #Monocytes 0.6 thou/uL (0.11-0.59); #Neutrophils 3.2 thou/uL (1.40-6.50); %Basophils 0.4 % (0.0-1.0); %Eosinophils 0.4 % (0.0-10.0); %Lymphocytes 23.5 % (21.0-51.0); %Monocytes 11.1 % (0.0-10.0); %Neutrophils 64.2 % (42.0-75.0); Hematocrit 45.4 % (36.0-47.0); Hemoglobin 15.1 g/dL (12.0-16.0); Mean Corpuscular HGB CONC 33.3 g/dL (32.0-36.0); Mean Corpuscular Hemoglobin 33.7 pg (27.0-31.0); Mean Corpuscular Volume 101.3 fl (78.0-98.0); Mean Platelet Volume 10.7 fL (7.4-10.4); Platelet Count 198 10x3/uL (130-400); RBC Distribution Width 13.8 % (11.5-14.5); Red Blood Cell (RBC) Count 4.48 mill/uL (4.20-5.40)
[2023-09-05 14:03] LABS: ALT (SGPT) 18 U/L (8-55); AST (SGOT) 16 U/L (5-34); Albumin 4.6 g/dL (3.5-5.0); Alkaline Phosphatase 78 U/L (40-110); Anion Gap 15 mmol/L (10-20); BUN (Urea Nitrogen) 14 mg/dL (9.8-20.1); Bilirubin, Total 0.9 mg/dL (0.2-1.2); Calc. Creatinine Clearance 0 mL/min (70-130); Calcium 9.5 mg/dL (7.8-10.44); Carbon Dioxide 25 mmol/L (22-29); Chloride 107 mmol/L (98-107); Estimated GFR 49; Globulin 3.1 g/dL (2.4-3.5); Glucose 93 mg/dL (70-105); Potassium 4.4 mmol/L (3.5-5.1); Protein, Total 7.7 g/dL (6.0-8.3); Sodium 143 mmol/L (136-145)
[2023-09-05 14:11] LABS: Troponin I Less than 0.010 ng/mL (< 0.028)
[2023-09-05] MEDS ORDERED: cefTRIAXone (ROCEPHIN) 1 GM VIAL ONE (14:19)
[2023-09-05] MEDS ORDERED: Lidocaine 1% PF 5 ML VIAL ONE (14:20)
[2023-09-05] MEDS ORDERED: Dexamethasone 10 MG/ML VIAL ONE (14:28)
[2023-09-05 14:42] LABS: SARS-CoV-2 NAA Rapid Test Not Detected (NotDetected)
== END 2023-09-05 15:57 | disposition home or self-care (01) ==
LOC: ERS 11:55
DX: J18.9 Pneumonia, unspecified organism (principal); I10 Essential (primary) hypertension; F17.210 Nicotine dependence, cigarettes, uncomplicated; Z79.899 Other long term (current) drug therapy; Z20.822 Contact with and (suspected) exposure to COVID-19
CPT/HCPCS: 71045; 80053; 83880; 84484; 85025; 87804 ×2; 93005; 96372; 99284; U0002; 36415; J0696; J1100